=== PATIENT | female | born 1950 | race Caucasian/White ===

== ENCOUNTER → 2020-09-10 | Day surgery (SDC) | payer MEDICARE, OTHER ==
[~2020-09-10] MED LIST: ADVIL200 M3 PO; BENTYL 20 MG TA20 M1 PO; BOTOX100 UNIT IV; CALCIUM; CELEBREX 200 M200 M1 PO; CYCLOBENZAPRINE5 MG PO; DESYREL50 MG PO; ESTRADERM1 EACH TD; HYCOSAMINE PO; HYDROCODON-ACE1 EAC5 PO; IBUPROFEN 200200 M1; LYRICA100 MG PO; MAXALT10 MG PO; MULTIVITAMINS PO; NORCO5 PO; PHENERGAN 25 MG25 M1 PO; PROAIR HFA8.5 GM INH; PROTONIX40 M2 PO; SYMBICORT160 MCG/4. INH; SYNTHROID PO; TOPAMAX 100 MG100 MG PO; TOPAMAX100 MG PO; TOPAMAX200 MG PO; TOPAMAX50 MG PO; VICODIN 5-5001 EACH PO; VITAMIN D1000 UNI1 PO
--- NOTE | ~2020-09-10 | OP ---
[facility] [address] [place] [address] OPERATIVE REPORT Name: GEORGIA BAIRES Room: [facility]#: [id number] Admission: 09/10/20 Attend Phys: Johnny Khan Discharge: Date of : 50 Report #: [id number] THIS REPORT FOR: cc: Priti Luz Mohammad K. DO Patterson, Jonathan D. MD ~ DOC #: [id number] Johnny Khan MD DATE OF SURGERY: 09/10/2020 PREOPERATIVE DIAGNOSIS: Right buttock mass, 4 cm, benign. POSTOPERATIVE DIAGNOSIS: Right buttock mass, 4 cm, benign. OPERATION: Excision of right buttock mass, 4 cm, benign. SURGEON: Johnny Khan MD ANESTHESIA: General. ESTIMATED BLOOD LOSS: Minimal. SPECIMENS: Right buttock mass. DESCRIPTION OF PROCEDURE: After informed consent was obtained, the patient was brought to the operating room and placed supine. SCDs were placed and working, preoperative antibiotics were administered, general anesthesia was induced. The patient was placed in the left lateral decubitus position. The area was then prepped and draped in the usual sterile fashion. A 6 cm incision was made over the lesion. Cautery dissection was made down through the subcutaneous tissue. It was dissected around. This is a very hard calcified mass. It was excised completely. The skin was then closed with interrupted 3-0 nylon. Sterile dressings were applied. COMPLICATIONS: None. DISPOSITION: The patient was taken to recovery in satisfactory condition. MD DANAY Leger/[place] [address] OPERATIVE REPORT Name: GEORGIA BAIRES Room: [facility]#: [id number] Admission: 09/10/20 Attend Phys: Johnny Khan Discharge: Date of : 50 Report #: [id number] By: [id number] Khan MD /nt
[2020-09-10 07:03] LABS: HEMATOCRIT 39.1 % (37.0-47.0); HEMOGLOBIN 13.2 gm/dL (12.0-15.0); MCH 31.6 pg (26.0-34.0); MCHC 33.7 g/dL (28.0-37.0); MCV 93.8 fL (80.0-100.0); RBC 4.16 mil/uL (4.20-5.00); RDW-CV 13.9 % (10.5-14.5)
[2020-09-10 07:14] LABS: CALCIUM 8.3 mg/dL (8.5-10.1); CREATININE 0.9 mg/dL (0.6-1.3); POTASSIUM 3.9 mmol/L (3.5-5.1)
[2020-09-10 07:19] LABS: ALBUMIN 3.2 g/dL (3.4-5.0); TOTAL BILIRUBIN 0.2 mg/dL (<0.1-1.0); TOTAL PROTEIN 6.1 g/dL (6.4-8.2)
--- NOTE | 2020-09-10 11:00 | EKG ---
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
--- NOTE | 2020-09-11 21:06 | PATH ---
[address] [address] PATHOLOGY RPT PROCEDURE Name: GEORGIA BAIRES Room: [facility].#: [id number] Admission: 09/10/20 Date of : 50 Discharge: Report #: [id number] Path Case #: [id number] [facility] Accession Number: [id number] . 01 Material submitted: . buttock - RIGHT BUTTOCK MASS. Modifiers: right . 02 Diagnosis: Skin and soft tissue "right buttock mass", excision: - Fibroadipose tissue with area of dense fibrosis and dystrophic calcification; negative for malignancy. - Mild chronic inflammation involving dermis. (LOUISE:dony; 09/11/2020) [facility] 09/11/20202032 Local . 02 Electronically signed: . Christy Garcia MD, Pathologist NPI- [id number] . 01 Gross description: . Received in formalin labeled "Georgia Baires, right buttock mass" is a portion of yellow-toure soft tissue measuring 5.2 x 3.5 x 1.5 cm with an attached irregular portion of toure-white skin measuring 3.2 x 1.6 x 0.5 cm. Within the soft tissue is a calcified toure-white hard portion of possible bone or tissue measuring 4.6 x 2.1 x 0.6 cm. Upon sectioning, the calcified tissue has a yellow-toure irregular cut surface. [employer] Ship[employer] sections of the calcified tissue are submitted in cassette A1 following decalcification. 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 ([facility]; 09/10/2020) [facility] 09/11/2020 1540 Local . 02 Pathologist provided ICD-10: L98.9 . 02 CPT . 201037 Specimen Comment: A courtesy copy of this report has been sent to [phone], [phone] Specimen Comment: [id number] Specimen Comment: Report sent to / DR HINDS Performed at: 01 [facility] [address], [place], [place] [id number] MD Kayode Neff MD Phone: [phone] Performed at: 02 [facility] [address], [place], [place] [id number] MD Stephen Mcdonnell MD Phone: [phone]
== END | disposition home or self-care (01) ==
LOC: M.SUR 05:42
PROVIDERS: ATTEND Surgery
DX: L98.8 Other specified disorders of the skin and subcutaneous tissue (principal); R22.41 Localized swelling, mass and lump, right lower limb; L94.2 Calcinosis cutis; G43.909 Migraine, unspecified, not intractable, without status migrainosus; Z98.890 Other specified postprocedural states; Z79.899 Other long term (current) drug therapy; Z90.710 Acquired absence of both cervix and uterus